=== PATIENT | female | born 1970 ===

== ENCOUNTER 2017-06-10 06:44 | Emergency (ER) | payer OTHER ==
[2017-06-10 06:48] VITALS: BMI 25.7
[2017-06-10 06:56] VITALS: TEMP 98; O2SAT 100
--- NOTE | 2017-06-10 07:17 | ED PDOC ---
Arrival/HPI - General Chief Complaint: Chest Pain Time Seen by Provider: 06/10/17 07:00 Historian: Patient - History of Present Illness Narrative History of Present Illness (Text): 06/10/17 07:14 46 year old female, with no significant past medical history, presents to the Emergency department complaining of left sided chest discomfort and bilateral hand numbness since 2 hours. Patient informs waking up this morning with bilateral hand numbness with mild discomfort to the left side of her chest. As per patient, the pain worsened laying on her left side. Patient informs associated trouble breathing but denies hyperventilating. Patient states her chest pain has improved but the numbness to her hands is still present. Patient denies smoking or drinking alcohol. Patient denies any fever, chills, nausea, vomiting, diarrhea, abdominal pain, trauma or any other complaints. Time/Duration: 1-3 hours Symptom Onset: Gradual Symptom Course: Improving Quality: Aching Activities at Onset: Light Context: Home Past Medical History - Provider Review Nursing Documentation Reviewed: Yes - Psychiatric Hx Substance Use: No Family/Social History - Physician Review Nursing Documentation Reviewed: Yes Family/Social History: No Known Family HX Smoking Status: Never Smoked Hx Alcohol Use: No Hx Substance Use: No Allergies/Home Meds Allergies/Adverse Reactions: Allergies acetaminophen [From Percocet] Allergy (Verified 06/10/17 07:00) RASH oxycodone [From Percocet] Allergy (Verified 06/10/17 07:00) RASH Penicillins Allergy (Verified 06/10/17 06:59) RASH Home Medications: Home Meds Medication Instructions Recorded Confirmed Multivitamin [Daily Vitamin 1 each PO DAILY 06/10/17 06/10/17 Formula] Review of Systems - Physician Review All systems were reviewed & negative as marked: Yes - Review of Systems Constitutional: Normal. absent: Fevers Eyes: Normal ENT: Normal Respiratory: Other (difficulty breathing secondary to chest pain) Cardiovascular: Chest Pain (left-sided) Gastrointestinal: Normal. absent: Abdominal Pain, Diarrhea, Nausea, Vomiting Genitourinary Female: Normal Musculoskeletal: Normal Skin: Normal Neurological: Normal Endocrine: Normal Hemo/Lymphatic: Normal Psychiatric: Normal Physical Exam Vital Signs Reviewed: Yes Vital Signs Temp Pulse Resp BP Pulse Ox 06/10/17 06:49 98.0 F 62 18 113/71 100 Temperature: Afebrile Blood Pressure: Normal Pulse: Regular Respiratory Rate: Normal Appearance: Positive for: Well-Appearing, Non-Toxic, Comfortable Pain Distress: None Mental Status: Positive for: Alert and Oriented X 3 - Systems Exam Head: Present: Atraumatic, Normocephalic Pupils: Present: PERRL Extroacular Muscles: Present: EOMI Conjunctiva: Present: Normal Mouth: Present: Moist Mucous Membranes Neck: Present: Normal Range of Motion Respiratory/Chest: Present: Clear to Auscultation, Good Air Exchange. No: Respiratory Distress, Accessory Muscle Use Cardiovascular: Present: Regular Rate and Rhythm, Normal S1, S2, Other (no reproducible chest wall tenderness). No: Murmurs Abdomen: Present: Normal Bowel Sounds. No: Tenderness, Distention, Peritoneal Signs Back: Present: Normal Inspection Upper Extremity: Present: Normal Inspection. No: Cyanosis, Edema Lower Extremity: Present: Normal Inspection. No: Edema Neurological: Present: GCS=15, CN II-XII Intact, Speech Normal Skin: Present: Warm, Dry, Normal Color. No: Rashes Psychiatric: Present: Alert, Oriented x 3, Normal Insight, Normal Concentration Medical Decision Making ED Course and Treatment: 06/10/17 07:19 Impression: 46 year old female presents to the Emergency department for left sided chest discomfort and bilateral hand numbness. Plan: -- Chest CT -- EKG -- Labs -- Reassess and disposition Progress Notes: 06/10/17 07:20 EKG: Ordered, reviewed, and independently interpreted the EKG. Rate : 72 BPM Rhythm : NSR Interpretation : No ST-segment elevations or depressions, no T-wave inversions, normal intervals. 06/10/17 09:07 CT of chest reviewed by radiologist, shows: 1. No CT evidence for acute pulmonary embolism. 2. No evidence of lobar pneumonia, pneumothorax or pleural effusion. 06/10/17 09:12 Chest X-ray reviewed, shows no acute processes. Negative finding. - Lab Interpretations Lab Results: 06/10/17 07:15 06/10/17 07:15 Lab Results 06/10/17 07:15: D-Dimer, Quantitative 274 H 06/10/17 07:15: Sodium 141, Potassium 4.8, Chloride 105, Carbon Dioxide 26, Anion Gap 15, BUN 18, Creatinine 0.7, Est GFR ( Amer) > 60, Est GFR (Non- Af Amer) > 60, Random Glucose 91, Calcium 9.4, Total Bilirubin 0.4, AST 37 H, ALT 59 H, Alkaline Phosphatase 50, Troponin I < 0.01, Total Protein 6.6, Albumin 3.9, Globulin 2.7, Albumin/Globulin Ratio 1.4 06/10/17 07:15: WBC 4.9, RBC 4.74, Hgb 14.1, Hct 42.5, MCV 89.7, MCH 29.7, MCHC 33.2, RDW 13.0, Plt Count 207, MPV 9.6, Gran % 62.4, Lymph % (Auto) 27.5, Whiteside % (Auto) 7.7 H, Eos % (Auto) 1.8, Baso % (Auto) 0.6, Gran # 3.08, Lymph # (Auto ) 1.4, Whiteside # (Auto) 0.4, Eos # (Auto) 0.1, Baso # (Auto) 0.03 - RAD Interpretation Radiology Orders: 06/10/17 07:25 CHEST ONE VIEW [RAD] Stat 06/10/17 08:09 ANGIO CHEST PE PROTOCOL [CT] Stat - Scribe Statement The provider has reviewed the documentation as recorded by the Scribe Halie Mae. All medical record entries made by the Scribe were at my direction and personally dictated by me. I have reviewed the chart and agree that the record accurately reflects my personal performance of the history, physical exam, medical decision making, and the department course for this patient. I have also personally directed, reviewed, and agree with the discharge instructions and disposition. Disposition/Present on Arrival - Present on Arrival Any Indicators Present on Arrival: No History of DVT/PE: No History of Uncontrolled Diabetes: No Urinary Catheter: No History of Decub. Ulcer: No History Surgical Site Infection Following: None - Disposition Have Diagnosis and Disposition been Completed?: Yes Diagnosis: Atypical chest pain Disposition: HOME/ ROUTINE Disposition Time: 09:15 Patient Plan: Discharge Patient Problems: Current Active Problems Problem Status Onset Atypical chest pain Acute Condition: STABLE Discharge Instructions (ExitCare): Chest Pain (ED), Chest Pain That Is Not Caused by the Heart (DC) Referrals: [facility] Oswaldo Hearn, [Primary Care Provider] - Follow up with primary Forms: 1d4 Pty (Syrian)
[2017-06-10 07:41] LABS: BASO # 0.03 K/mm3 (0.0-2.0); BASO % 0.6 % (0.0-3.0); EOS # 0.1 (0.0-0.7); EOS % 1.8 % (1.5-5.0); GRAN # 3.08 (1.4-6.5); GRAN % 62.4 % (50.0-68.0); HEMOGLOBIN 14.1 g/dL (12.0-16.0); LYMPH # 1.4 (1.2-3.4); LYMPH % 27.5 % (22.0-35.0); MEAN CELL VOLUME 89.7 fl (80.0-105.0); MEAN CORPUSCULAR HEMOGLOBIN 29.7 pg (25.0-35.0); MEAN CORPUSCULAR HGB CONC 33.2 g/dl (31.0-37.0); MEAN PLATELET VOLUME 9.6 fl (7.0-11.0); MONO # 0.4 (0.1-0.6); MONO % 7.7 % (1.0-6.0); RBC 4.74 10^6/uL (3.5-6.1); WHITE BLOOD COUNT 4.9 10^3/ul (4.5-11.0)
[2017-06-10 07:52] LABS: ALB/GLOB RATIO 1.4 (1.1-1.8); ALBUMIN 3.9 g/dL (3.0-4.8); ALT/SGPT 59 U/L (7-56); AST/SGOT 37 U/L (14-36); BLOOD UREA NITROGEN 18 mg/dL (7-21); CALCIUM 9.4 mg/dL (8.4-10.5); GFR AFRICAN-AMERICAN > 60; GFR NON-AFRICAN AMERICAN > 60
[2017-06-10 08:02] LABS: TROPONIN I < 0.01 ng/mL
[2017-06-10] MEDS ORDERED: Iodixanol 320 MG/ML 100 ML BOTTLE IV ONE (08:16)
--- NOTE | 2017-06-10 08:56 | CT ---
PROCEDURE: CT Chest with contrast (Pulmonary Angiogram) HISTORY: Pain and shortness of breath COMPARISON: None available. TECHNIQUE: Axial computed tomography images were obtained of the chest in the pulmonary arterial phase of enhancement. Coronal and sagittal reformatted images were created and reviewed. Intravenous contrast dose: 100 mL Visipaque 320 Radiation dose: Total exam DLP = 363.10 mGy-cm. This CT exam was performed using one or more of the following dose reduction techniques: Automated exposure control, adjustment of the mA and/or kV according to patient size, and/or use of iterative reconstruction technique. FINDINGS: PULMONARY ARTERIES: There are no filling defects in the pulmonary arteries to suggest acute pulmonary embolism. AORTA: No acute findings. No thoracic aortic aneurysm. LUNGS: The lungs are well inflated. There is dependent atelectasis in the posterior lungs. . PLEURAL SPACES: No effusion or pneuomothorax. HEART: The heart is normal in size. No pericardial effusion. LYMPH NODES: No lymphadenopathy. BONES, CHEST WALL: Within normal limits for the patient's age. No fracture or destructive lesion OTHER FINDINGS: Bilateral retroglandular saline implants are intact. IMPRESSION: 1. No CT evidence for acute pulmonary embolism. 2. No evidence of lobar pneumonia, pneumothorax or pleural effusion.
[2017-06-10 09:24] VITALS: BP 139/54; PULSE 55; RESP 16
--- NOTE | 2017-06-10 09:46 | RAD ---
PROCEDURE: CHEST RADIOGRAPH, 1 VIEW HISTORY: cp COMPARISON: Chest CT with contrast 06/10/2017 FINDINGS: LUNGS: No acute infiltrate identified bilaterally. PLEURA: No pneumothorax or pleural fluid seen. CARDIOVASCULAR: Normal. OSSEOUS STRUCTURES: No significant abnormalities. VISUALIZED UPPER ABDOMEN: Normal. OTHER FINDINGS: None. IMPRESSION: No acute cardiopulmonary disease appreciated.
--- NOTE | 2017-06-10 10:22 | CARD ---
APPROVED REPORT EKG Measurement Heart [id number] PA 108P-19 [id number] <Conclusion> Sinus bradycardia with short PA
== END 2017-06-10 09:23 | disposition home or self-care (01) ==
LOC: ED 06:44
DX: R07.89 Other chest pain (principal)
CPT/HCPCS: 71045; 71275; 80053; 84484; 85025; 85378; 93005; 99283; Q9967